=== PATIENT | female | born 1950 | race Caucasian/White ===

== ENCOUNTER 2018-06-12 09:34 | Inpatient (IN) | payer BC ==
[~2018-06-12] VITALS: Ht 172.7 cm; Wt 104.8 kg
--- NOTE | ~2018-06-12 | CON ---
[address] [address] CONSULTATION Name: KODY WINCHESTER Room: [address] IN [facility]#: [id number] Admission: 06/12/18 Attend Phys: Jessica Santamaria MD Discharge: 06/15/18 Date of : 54 Report #: [id number] THIS REPORT FOR: //name// CC: Jessica Cabrera DO DICTATED BY: Dorothy Schmitt [facility] DATE OF SERVICE: 06/14/2018 Please note at the time of this dictation, the patient was seen and physically examined by myself. REASON FOR CONSULTATION: History of GERD and increased shortness of breath and some left-sided chest pain. HISTORY OF PRESENT ILLNESS: This is a 67-year-old female who presented with acute on chronic shortness of breath that has been worsening over the last 24 hours. The patient states that she began developing these symptoms after she had a DVT after she had some vein surgery. They placed her on Xarelto with 3 weeks after she started the Xarelto, she started notice some intermittent shortness of breath. She did not quit taking the Xarelto until her symptoms became so severe with her shortness of breath last 05/2017. She states once she quit taking the Xarelto, her symptoms did improve up until here recently and she started having similar episodes. She states they are sporadic when they can occur with her most recent one being prior to this hospitalization. Prior to that, it has been many weeks in between episodes. She states she has had GERD symptoms for several years. She has never seen a GI doctor for any endoscopic evaluation for this. She was placed on omeprazole 20 mg by her PCP, initially was Nexium, which did not help and she switched over to omeprazole, which was cheaper and that has controlled her symptoms. She denies any breakthrough symptoms. No coughing waking her at night or any reflux issues at this particular time. She denies any chronic NSAID use as well. ALLERGIES: PENICILLIN, DOXYCYCLINE AND CLINDAMYCIN. MEDICATIONS: From home, omeprazole 20 mg, Claritin and Zestoretic. PAST MEDICAL HISTORY: ENVIRONMENTAL ALLERGIES. She had a DVT post-surgery in 2018 and GERD. PAST SURGICAL HISTORY: Hysterectomy, total knee replacement, varicosity, vein surgery in 2018. FAMILY HISTORY: Negative for any [place] [address] CONSULTATION Name: KODY WINCHESTER Clementine Room: [address]#: [id number] Admission: 06/12/18 Attend Phys: Jessica Santamaria MD Discharge: 06/15/18 Date of : 54 Report #: [id number] SOCIAL HISTORY: Denies any tobacco, alcohol or illegal drug use. REVIEW OF SYSTEMS: Twelve-point review of systems is essentially negative except what is mentioned in the HPI. PHYSICAL EXAMINATION: VITAL SIGNS: Temperature 36.7, pulse 89, respirations 18, blood pressure 135/85. HEART: Regular rate and rhythm. LUNGS: Clear. ABDOMEN: Soft, positive bowel sounds in all 4 quadrants with no masses or tenderness noted. LABORATORY DATA: Hemoglobin 14.8, white count is 4.9, platelets 315. PT 10.7, INR is 1.0. GFR is 56. The patient had a complete cardiac workup, which was completely negative including a nuclear stress test. IMPRESSION: 1. Gastroesophageal reflux disease. 2. Shortness of air, intermittent, but worsening. 3. Chest pain, intermittent and worsening. 4. Chronic kidney disease. PLAN: 1. EGD tomorrow at 8:[address] Jenkins. All of this was discussed with the patient. 2. Further recommendations to be made once the procedure has been performed. If the above is negative, may consider a Pulmonary consult. Thank you for allowing us to participate in this patient's care. Please do not hesitate to call with any questions in regard to this consult. ADDENDUM I have personally seen and examined the patient and reviewed labs and imaging. The patient has never had endoscopic evaluation. She admits of taking PPI for the past several years and has chest pain. Cardiology has ruled out cardiac origin of chest pain. She also has shortness of air and being evaluated by Pulmonary. We will consider EGD since she has noncardiac chest pain and has been taking PPI for several years. She may also benefit [place] [address] CONSULTATION Name: KODY WINCHESTER Room: [address] IN [facility]#: [id number] Admission: 06/12/18 Attend Phys: Jessica Santamaria MD Discharge: 06/15/18 Date of : 54 Report #: [id number] an outpatient as she never had colonoscopy in the past. The patient is agreeable with plan. By: [id number] Jenkins MD /nt
[2018-06-12 09:38] VITALS: BP 154/93
[2018-06-12] MEDS ORDERED: ZESTORETIC 20-1 EAC3 PO (09:45)
[2018-06-12] MEDS ORDERED: CLARITIN10 MG PO (09:46)
[2018-06-12] MEDS ORDERED: OMEPRAZOLE20 M2 PO (09:46)
[2018-06-12 10:02] LABS: ABSOLUTE EOSINOPHILS 0.1 thou/uL (0.0-0.7); ABSOLUTE LYMPHOCYTES 1.9 thou/uL (0.8-5.3); ABSOLUTE MONOCYTES 0.4 thou/uL (0.0-1.2); ABSOLUTE NEUTROPHILS 2.5 thou/uL (1.6-8.1); BASOPHILS 0.9 %; EOSINOPHILS 2.9 %; HEMATOCRIT 43.3 % (37.0-47.0); HEMOGLOBIN 14.8 gm/dL (12.0-15.0); LYMPHOCYTES 38.5 %; MCH 29.4 pg (26.0-34.0); MCHC 34.1 g/dL (28.0-37.0); MCV 86.3 fL (80.0-100.0); MONOCYTES 7.9 %; MPV 7.2 fl. (7.2-11.1); NUCLEATED RBCS 0 /100WBC; PLATELET COUNT* 315 thou/uL (150-400); POLYS 49.8 %; RBC 5.02 mil/uL (4.20-5.00); WBC 4.9 thou/uL (4.0-11.0)
[2018-06-12 10:19] LABS: ALBUMIN 3.8 g/dL (3.4-5.0); CALCIUM 10.2 mg/dL (8.5-10.1); POTASSIUM 3.7 mmol/L (3.5-5.1); TOTAL BILIRUBIN 0.4 mg/dL (<0.1-1.0); TOTAL PROTEIN 7.6 g/dL (6.4-8.2)
[2018-06-12 10:26] LABS: PROTIME 10.7 Seconds (9.20-11.50)
[2018-06-12 10:27] LABS: BE 1.2 mmol/L (-2 to +3); PCO2 35.2 mmHg (35.0-45.0); PO2 114.4 mmHg (75.0-100.0); pH 7.461 (7.340-7.450)
[2018-06-12 15:53] VITALS: BP 116/74
--- NOTE | 2018-06-12 15:53 | 2DMMODE ---
[place] [address] 2 D/M-MODE ECHOCARDIOGRAM Name: KODY WINCHESTER Room: [address] IN [facility]#: [id number] Admission: 06/12/18 Attend Phys: Jessica Santamaria, Discharge: Date of : 54 Date of Service: 06/12/18 1552 Report #: [id number] THIS REPORT FOR: //name// APPROVED REPORT Study performed: 06/12/2018 14:39:57 EXAM: Comprehensive 2D, Doppler, and color-flow Echocardiogram Patient Location: In-Patient Room #: ER Status: routine BSA: 2.15 HR: 89 bpm BP: 111/75 mmHg Rhythm: NSR Other Information Study Quality: Good Indications Murmur Dyspnea 2D Dimensions IVSd: 10.98 (7-11mm) LVOT Diam: 17.86 (18-24mm) LVDd: 43.73 mm PWd: 9.70 (7-11mm) Ascending Ao: 26.84 (22-36mm) LVDs: 25.75 (25-40mm) Aortic Root: 27.22 mm Volumes Left Atrial Volume (Systole) LA ESV Index: 19.90 mL/m2 Aortic Valve AoV Peak Kentrell.: 1.47 m/s AO Peak Gr.: 8.68 mmHg LVOT Max P.10 mmHg AO Mean Gr.: 4.81 mmHg LVOT Mean P.88 mmHg LVOT Max V: 1.23 m/s AO V2 VTI: 20.67 cm LVOT Mean V: 0.78 m/s HAILEY (VTI): 2.57 cm2 LVOT V1 VTI: 21.25 cm Mitral Valve E/A Ratio: 0.72 MV Decel. Time: 223.96 [place] [address] 2 D/M-MODE ECHOCARDIOGRAM Name: KODY WINCHESTER Room: [address] IN ..#: [id number] Admission: 06/12/18 Attend Phys: Jessica Santamaria, Discharge: Date of : 54 Date of Service: 06/12/18 1552 Report #: [id number] MV E Max Kentrell.: 0.64 m/s MV PHT: 64.95 ms MVA (PHT): 3.39 cm2 TDI E/Lateral E': 8.00 E/Medial E': 5.82 Medial E' Kentrell.: 0.11 m/s Lateral E' Kentrell.: 0.08 m/s Pulmonary Valve PV Peak Kentrell.: 1.19 m/s PV Peak Gr.: 5.66 mmHg Left Ventricle The left ventricle is normal size. There is normal LV segmental wall motion. There is normal left ventricular wall thickness. Left ventricular systolic function is normal. The left ventricular ejection fraction is within the normal range. LVEF is 60-65%. Grade I - abnormal relaxation pattern. Right Ventricle The right ventricle is normal size. The right ventricular systolic function is normal. Atria The left atrium size is normal. The right atrium size is normal. Aortic Valve The aortic valve is normal in structure. No aortic regurgitation is present. There is no aortic valvular stenosis. Mitral Valve The mitral valve is normal in structure. Trace mitral regurgitation. No evidence of mitral valve stenosis. Tricuspid Valve The tricuspid valve is normal in structure. There is no tricuspid valve regurgitation noted. Pulmonic Valve The pulmonary valve is normal in structure. There is no pulmonic valvular regurgitation. Great Vessels The aortic root is normal in size. IVC is normal in size and collapses >50% [place] [address] 2 D/M-MODE ECHOCARDIOGRAM Name: KODY WINCHESTER Room: [address] IN [facility]#: [id number] Admission: 06/12/18 Attend Phys: Jessica Santamaria, Discharge: Date of : 54 Date of Service: 06/12/18 1552 Report #: [id number] Pericardium There is no pericardial effusion. <Conclusion> The left ventricle is normal size. There is normal left ventricular wall thickness. Left ventricular systolic function is normal. The left ventricular ejection fraction is within the normal range. LVEF is 60-65%. Grade I - abnormal relaxation pattern. The right ventricle is normal size. The left atrium size is normal. The aortic valve is normal in structure. The mitral valve is normal in structure. Trace mitral regurgitation. The tricuspid valve is normal in structure. IVC is normal in size and collapses >50% with inspiration. There is no pericardial effusion. There is normal LV segmental wall motion. <ELECTRONICALLY SIGNED> By: Sang Lema MD, FACC 06/12/18 1552 1552 155 Sang Lema MD, FACC /INF
[2018-06-12 16:23] VITALS: BP 140/84
[2018-06-12 20:00] VITALS: BP 101/60
[2018-06-13] VITALS: BP 118/74
[2018-06-13 04:00] VITALS: BP 101/48
[2018-06-13 05:15] LABS: CHOLESTEROL 212 mg/dL (<200); HDL CHOLESTEROL 64 mg/dL (>40); LDL CHOLESTEROL 132 mg/dL (<100); TC:HDL 3.3 Ratio (Not establshd); TRIGLYCERIDE 80 mg/dL (<150); VLDL 16 mg/dL (<40)
[2018-06-13 05:17] LABS: SERUM ASSESSMENT Clear
[2018-06-13 08:22] VITALS: BP 135/87
[2018-06-13 15:58] VITALS: BP 90/48
--- NOTE | 2018-06-13 18:17 | EKG ---
[place] [address] ELECTROCARDIOGRAM REPORT Name: KODY WINCHESTER Room: [address] IN [facility].#: [id number] Admission: 06/12/18 Attend Phys: Jessica Santamaria MD Discharge: Date of : 54 Report #: [id number] THIS REPORT FOR: //name// [facility] ED Test Date: 2018-06-12 Test Time: 09:40:41 Pat Name: KODY WINCHESTER Department: Room: [facility] Gender: F Hammerer Helper: : 1950 Requested By: Jessica Espitia Order Number: [id number] MD: Jefferson Matos Measurements Intervals Caldwell Rate: 102 P: 39 VA: 164 QRS: -28 QRSD: 95 T: 13 QT: 327 QTc: 426 Interpretive Statements Sinus tachycardia Abnormal R-wave progression, late transition Probable left atrial enlargement No previous ECG available for comparison Electronically Signed On 06-13-2018 18:17:24 CDT by Jefferson Matos [email or web address] <ELECTRONICALLY SIGNED> By: Jefferson Matos MD, [facility] 06/13/18 1817 9 9 Jefferson Matos MD, FAC /EPI
[2018-06-13 20:00] VITALS: BP 90/49
[2018-06-14 00:10] VITALS: BP 92/56
[2018-06-14 04:00] VITALS: BP 109/63
[2018-06-14 08:00] VITALS: BP 135/85
[2018-06-14 12:10] VITALS: BP 115/68
[2018-06-14 16:00] VITALS: BP 103/57
--- NOTE | 2018-06-14 17:20 | CARDNUC ---
[place] [address] CARDIAC NUCLEAR IMAGING REPORT Name: KODY WINCHESTER Room: [address]#: [id number] Admission: 06/12/18 Attend Phys: Jessica Santamaria, Discharge: Date of : 54 Date of Service: 06/14/18 1720 Report #: [id number] THIS REPORT FOR: //name// APPROVED REPORT Imaging Protocol: Stress Tc-99m/Rest Tc-99m 2 days Study performed: 06/13/2018 08:39:00 Indication: Chest pain, Dyspnea Patient Location: Out-Patient Stress Tech: Rowan Mota Stress Nurse: Laly Marcum RN NM Tech:LUCIA Strange BMI: 0 Medical History Medical History: hyperlipidemia, hypertension, pvd, Medications: asa, atorvastatin,hctz,lisinopril Allergies: penicllin, doxycycline, clindamycin Cardiac Risk Factors: age, hyperlipidemia, hypertension, pvd, family hx Exercise History: Sedentary Resting Data Rest SPECT myocardial perfusion imaging was performed in supine position 30 minutes following the intravenous injection of 38.5 mCi of Tc-99m Sestamibi. Time of rest injection: 719 Date: 06/14/2018 The images were gated to evaluate regional wall motion and calculate left ventricular ejection fraction. Administration Route: IV Administration Site: Left Wrist Pharmacologic Stress Pharmacologic stress test was performed by injecting Regadenoson 0.4 mg IV push over 10-15 seconds immediately followed by the intravenous injection of 39.5 mCi of Tc-99m Sestamibi. Time of stress injection: 1050 Date: 06/13/2018 Administration Route: IV Administration Site: Left Wrist Gated Stress SPECT was performed 40 minutes after stress injection. The images were gated to evaluate regional wall motion and calculate left [place] [address] CARDIAC NUCLEAR IMAGING REPORT Name: KODY WINCHESTER Room: [address]#: [id number] Admission: 06/12/18 Attend Phys: Jessica Santamaria, Discharge: Date of : 54 Date of Service: 06/14/18 1720 Report #: [id number] Prone imaging was performed. Stress Test Details Stress Test: Pharmacologic stress testing performed using 0.4 mg of regadenoson per 5 mL given IV over 10 seconds. Reason for pharmacologic stress test: physical limitation. HR Max Heart Rate (APMHR): 155 bpm Resting HR: 80 bpm Target HR (85% APMHR): 131 bpm Max HR Achieved: 104 bpm % of APMHR: 67 Recovery HR: 98 bpm BP Resting BP: 102/69 mmHg Max BP: 118/56 mmHg Recovery BP: 109/43 mmHg ECG Resting ECG: Sinus Rhythm Stress ECG: Sinus Tachycardia ST Change: None Arrhythmia: None Recovery ECG: Sinus Rhythm Recovery ST Change: None Recovery Arrhythmia: None Clinical Reason for Termination: Completed protocol The patient tolerated Lexiscan infusion without significant symptoms. Nurse Comments ivrestarted d/t leaking Stress ECG Conclusion The baseline 12-lead EKG show sinus rhythm with no stiffness or T wave abnormalities. EKGs during and post Lexiscan infusion show sinus rhythm with no significant ST or T wave changes when compared baseline. Were no stress-induced arrhythmias. Study Quality Study: Good Artifact: No artifact Study Data At rest, the left ventricular ejection fraction was 79%.. [place] [address] CARDIAC NUCLEAR IMAGING REPORT Name: KODY WINCHESTER Clementine Room: [address]#: [id number] Admission: 06/12/18 Attend Phys: Jessica Santamaria, Discharge: Date of : 54 Date of Service: 06/14/18 1720 Report #: [id number] Post stress, the left ventricular ejection was 81%.. TID = 0.88. Perfusion Normal left ventricular perfusion. Wall Motion Normal left ventricular wall motion. Nuclear Conclusion ECG Findings: negative for ischemia Clinical Findings: negative for ischemia Nuclear Findings: negative for ischemia Exercise Capacity: not assessed Left Ventricular Function: normal Risk Study: low Myocardial perfusion images show no defect to suggest infarct or ischemia. Left ventricular systolic function is normal on gated studies. This is a low risk study. <Conclusion> The baseline 12-lead EKG show sinus rhythm with no stiffness or T wave abnormalities. EKGs during and post Lexiscan infusion show sinus rhythm with no significant ST or T wave changes when compared baseline. Were no stress-induced arrhythmias. <ELECTRONICALLY SIGNED> By: Jefferson Matos MD, FACC 06/14/181719 19 19 Jefferson Matos MD, FACC /INF
[2018-06-14 20:30] VITALS: BP 93/54
[2018-06-15] VITALS: BP 91/43
[2018-06-15 04:00] VITALS: BP 86/53
[2018-06-15 05:10] LABS: ABSOLUTE EOSINOPHILS 0.1 thou/uL (0.0-0.7); ABSOLUTE LYMPHOCYTES 2.1 thou/uL (0.8-5.3); ABSOLUTE MONOCYTES 0.5 thou/uL (0.0-1.2); ABSOLUTE NEUTROPHILS 2.4 thou/uL (1.6-8.1); BASOPHILS 0.9 %; EOSINOPHILS 2.2 %; HEMATOCRIT 37.7 % (37.0-47.0); LYMPHOCYTES 40.8 %; MCH 29.1 pg (26.0-34.0); MCHC 33.4 g/dL (28.0-37.0); MONOCYTES 9.9 %; MPV 7.4 fl. (7.2-11.1); NUCLEATED RBCS 0 /100WBC; PLATELET COUNT* 297 thou/uL (150-400); POLYS 46.2 %; RBC 4.33 mil/uL (4.20-5.00); RDW-CV 13.7 % (10.5-14.5); WBC 5.1 thou/uL (4.0-11.0)
[2018-06-15 05:48] LABS: CALCIUM 9.2 mg/dL (8.5-10.1); CREATININE 1.1 mg/dL (0.6-1.3); MAGNESIUM 1.8 mg/dL (1.8-2.4); POTASSIUM 4.2 mmol/L (3.5-5.1)
[2018-06-15 05:56] LABS: HEMOGLOBIN 12.6 gm/dL (12.0-15.0)
[2018-06-15 07:24] VITALS: BP 121/66
[2018-06-15] MEDS ORDERED: OMEPRAZOLE20 M2 PO (11:51)
[2018-06-15] MEDS ORDERED: ADVAIR HFA 230M12 GM INH (11:53)
[2018-06-15 12:04] VITALS: BP 121/66
[2018-06-15 13:14] VITALS: BP 109/60
== END 2018-06-15 13:45 | disposition home or self-care (01) | DRG 392 ==
LOC: M.ERS 09:34 → M.2W 12:48 → M.TBA-ER 12:48 → M.2W 16:16
PROVIDERS: Family Medicine; Personal Emergency Response Attendant; ADMIT Internal Medicine
PROC: 0D758ZZ Dilation of Esophagus, Via Natural or Artificial Opening Endoscopic (ICD-10-PCS; principal; 2018-06-15)
DX: K22.2 Esophageal obstruction (principal); K44.9 Diaphragmatic hernia without obstruction or gangrene; N18.9 Chronic kidney disease, unspecified; Z96.659 Presence of unspecified artificial knee joint; E78.5 Hyperlipidemia, unspecified; I12.9 Hypertensive chronic kidney disease with stage 1 through stage 4 chronic kidney disease, or unspecified chronic kidney disease; J45.20 Mild intermittent asthma, uncomplicated; K21.9 Gastro-esophageal reflux disease without esophagitis; Z86.718 Personal history of other venous thrombosis and embolism; Z79.899 Other long term (current) drug therapy; Z88.0 Allergy status to penicillin; Z88.1 Allergy status to other antibiotic agents; Z88.8 Allergy status to other drugs, medicaments and biological substances; Z90.710 Acquired absence of both cervix and uterus